=== PATIENT | male | born 1945 | race Caucasian/White ===

== ENCOUNTER 2024-08-04 15:34 | Inpatient (IN) | payer MEDICARE ==
[~2024-08-04] VITALS: Ht 167.6 cm; Wt 61.2 kg
[2024-08-04] MEDS: GABAPENTIN 300 MG CAPSULE PO SCH (10:00)
[2024-08-04] MEDS ORDERED: Magnesium 1GM/D5W 100ML PREMIX 100 ML IV ONE (15:53)
[2024-08-04] MEDS ORDERED: DILTIAZEM HCL 50 MG IV ONE (15:54)
[2024-08-04 16:02] LABS: ABG BASE EXCESS -1.3 mmol/L (-2.0-3.0); ABG PCO2 44.2 mmHg (35.0-48.0); ABG PH 7.359 (7.350-7.450); ABG PO2 200.2 mmHg (83.0-108.0); ABG TOTAL HEMOGLOBIN 15.2 G/dL (13.5-17.5); COHb 0.3 % (0.5-1.5); MetHb 0.3 % (0.0-1.5); O2Hb 98.4 % (94.0-97.0); SITE, ABG RIGHT RADIAL
[2024-08-04] MEDS: DILTIAZEM HCL 50 MG IV IV ONE (16:12)
[2024-08-04] MEDS: Magnesium 1GM/D5W 100ML PREMIX 200 ML IV ONE (16:13)
[2024-08-04] MEDS ORDERED: methylPREDNISolone SOD SUCC 125 MG/2ML VIAL ONE (16:14)
[2024-08-04] MEDS: methylPREDNISolone SOD SUCC 125 MG/2ML VIAL IV ONE (16:15)
[2024-08-04] MEDS ORDERED: LORAZEPAM INJ 2 MG/ML VIAL ONE ×2 (16:15→20:48)
[2024-08-04] MEDS: LORAZEPAM INJ 2 MG/ML VIAL IV ONE ×4 (16:15→20:30)
[2024-08-04] MEDS ORDERED: IPRATROPIUM NEB FS 0.5 MG/2.5 ML AMPUL.NEB ONE (16:18)
[2024-08-04] MEDS ORDERED: ALBUTEROL FS 2.5 MG/3 ML VIAL.NEB ONE ×2 (16:18→19:44)
[2024-08-04 16:20] VITALS: O2SAT 97
[2024-08-04] MEDS: IPRATROPIUM NEB FS 0.5 MG/2.5 ML AMPUL.NEB NEB ONE (16:20)
[2024-08-04] MEDS: ALBUTEROL FS 2.5 MG/3 ML VIAL.NEB CONTNEB ONE (16:20)
[2024-08-04 16:33] VITALS: O2SAT 98
[2024-08-04 16:39] LABS: BASOPHILS # (AUTO) 0.1 K/uL (0.0-0.2); BASOPHILS % (AUTO) 1.2 % (0.0-2.0); EOSINOPHILS # (AUTO) 0.1 K/uL (0.0-0.7); EOSINOPHILS % (AUTO) 0.5 % (0.0-6.0); HEMATOCRIT 44 % (39-51); HEMOGLOBIN 13.7 g/dL (13.5-17.5); LYMPHOCYTES # (AUTO) 0.3 K/uL (0.8-4.8); LYMPHOCYTES % (AUTO) 2.6 % (20.0-44.0); MEAN CORPUSCULAR HEMOGLOBIN 25 PG (26.0-33.0); MEAN CORPUSCULAR HGB CONC 32 g/dl (31.0-36.0); MEAN CORPUSCULAR VOLUME 80 fL (80-96); MONOCYTES # (AUTO) 0.3 K/uL (0.1-1.30); MONOCYTES % (AUTO) 2.7 % (2.0-12.0); NEUTROPHILS # (AUTO) 11.8 K/uL (1.8-8.9); PLATELET COUNT (AUTO) 373 K/uL (150-450); RED BLOOD CELL COUNT(AUTO) 5.43 MIL/uL (4.5-6.0); RED CELL DISTRIBUTION WIDTH 16.7 % (11.5-15.0); WHITE BLOOD COUNT (AUTO) 12.7 K/uL (4.3-11.0)
[2024-08-04 16:50] LABS: CALCIUM, SERUM 9.5 mg/dL (8.5-10.1); CARBON DIOXIDE 26 mmol/L (21-32); CHLORIDE 103 mmol/L (98-107); CREATININE 1.3 mg/dL (0.6-1.3); GLUCOSE 222 mg/dL (74-106); POTASSIUM 4.1 mmol/L (3.5-5.1); SODIUM SERUM 139 mmol/L (136-145); UREA NITROGEN, BLOOD 37 mg/dL (7-18)
[2024-08-04 17:01] LABS: LACTIC ACID 4.7 mmol/L (0.4-2.0)
[2024-08-04 17:04] LABS: ALANINE AMINOTRANSFERASE 155 U/L (12-78); ALBUMIN 3.5 g/dL (3.4-5.0); ALKALINE PHOSPHATASE 118 U/L (46-116); ASPARTATE AMINOTRANSFERASE 154 U/L (15-37); BILIRUBIN,DIRECT 0.3 mg/dL (0.0-0.2); BILIRUBIN,TOTAL 0.6 mg/dL (0.2-1.0); TOTAL PROTEIN, SERUM 6.6 g/dL (6.4-8.2)
[2024-08-04] MEDS ORDERED: METO25TA4 PO (17:28)
[2024-08-04] MEDS ORDERED: CLOP75TA15 PO (17:28)
[2024-08-04] MEDS ORDERED: AZIT250T13 PO (17:28)
[2024-08-04] MEDS ORDERED: DUTA0.5C37 PO (17:28)
[2024-08-04] MEDS ORDERED: FLUT1BLS IH (17:28)
[2024-08-04] MEDS ORDERED: GABA300C PO (17:28)
[2024-08-04] MEDS ORDERED: IPRA12.9 IH (17:28)
[2024-08-04] MEDS ORDERED: PRED20TA PO (17:28)
[2024-08-04] MEDS ORDERED: TRAZ-252 PO (17:28)
[2024-08-04] MEDS ORDERED: TUDORZA IH (17:28)
[2024-08-04] MEDS ORDERED: SACU1TAB PO (17:28)
[2024-08-04] MEDS ORDERED: ENOXAPARIN SODIUM 60 MG/0.6 ML DISP.SYRIN SQ ONE (17:36)
[2024-08-04] MEDS ORDERED: IOHEXOL-350 100 ML VIAL IV ONE (17:46)
[2024-08-04] MEDS ORDERED: IV NS 0.9% 250 ML IV ONE (17:47)
[2024-08-04] MEDS ORDERED: CT SWABBABLE VALVE TRANS SET 1 EA INFUS.SET MC ONE (17:47)
[2024-08-04] MEDS: ENOXAPARIN SODIUM 60 MG/0.6 ML DISP.SYRIN SQ ONE (17:51)
[2024-08-04] MEDS ORDERED: ACETAMINOPHEN 325 MG TABLET PO PRN (19:00)
[2024-08-04] MEDS ORDERED: ONDANSETRON HCL/PF 4 MG/2 ML VIAL IVP PRN (19:00)
[2024-08-04] MEDS ORDERED: Z GUARD REMEDY 4 OZ OINT TP PRN (19:00)
[2024-08-04] MEDS ORDERED: MAGNESIUM HYDROXIDE 30 ML UDC PO PRN (19:00)
[2024-08-04] MEDS ORDERED: FUROSEMIDE 40 MG/4 ML VIAL ONE (19:22)
[2024-08-04] MEDS: FUROSEMIDE 40 MG/4 ML VIAL IV ONE (19:32)
[2024-08-04 19:41] VITALS: O2SAT 100
[2024-08-04] MEDS: IPRATROPIUM NEB FS 0.5 MG/2.5 ML AMPUL.NEB NEB STA (19:41)
[2024-08-04] MEDS: ALBUTEROL FS 2.5 MG/3 ML VIAL.NEB NEB STA (19:41)
[2024-08-04 19:56] VITALS: O2SAT 100
[2024-08-04] MEDS: METOPROLOL TARTRATE INJ 5 MG/5 ML AMPUL IV ONE (20:30)
[2024-08-04] MEDS ORDERED: METOPROLOL TARTRATE INJ 5 MG/5 ML AMPUL ONE (20:48)
[2024-08-04] MEDS: TRAZODONE 50 MG TABLET PO SCH (22:00)
[2024-08-04] MEDS: ZOSYN IVPB 3.375 G in IV D5W 50ml IV SCH (22:16)
[2024-08-04 23:57] VITALS: BP 128/66; TEMP 97.5; O2SAT 100
[2024-08-05] VITALS (14 sets, daily range): BP systolic 94–137; BP diastolic 56–79; TEMP 96.8–98.1; O2SAT 97–100
[2024-08-05] MEDS: ALBUTEROL FS 2.5 MG/3 ML VIAL.NEB NEB SCH ×2 (02:12→13:54)
[2024-08-05] MEDS: IPRATROPIUM NEB FS 0.5 MG/2.5 ML AMPUL.NEB NEB SCH (02:12)
[2024-08-05] MEDS: LORAZEPAM INJ 2 MG/ML VIAL IV ONE (03:43)
[2024-08-05] MEDS: methylPREDNISolone SOD SUCC 40 MG/ML VIAL IV ONE (04:19)
[2024-08-05] MEDS: ENOXAPARIN SODIUM 60 MG/0.6 ML DISP.SYRIN SQ SCH (05:54)
[2024-08-05 06:38] LABS: HEMATOCRIT 41 % (39-51); HEMOGLOBIN 13.2 g/dL (13.5-17.5); LYMPHOCYTES # (AUTO) 0.2 K/uL (0.8-4.8); MEAN CORPUSCULAR HEMOGLOBIN 26 PG (26.0-33.0); MEAN CORPUSCULAR HGB CONC 32 g/dl (31.0-36.0); MEAN CORPUSCULAR VOLUME 80 fL (80-96); MONOCYTES # (AUTO) 0.4 K/uL (0.1-1.30); MONOCYTES % (AUTO) 4.4 % (2.0-12.0); NEUTROPHILS # (AUTO) 8.6 K/uL (1.8-8.9); NEUTROPHILS % (AUTO) 93.6 % (43.0-81.0); PLATELET COUNT (AUTO) 306 K/uL (150-450); RED BLOOD CELL COUNT(AUTO) 5.16 MIL/uL (4.5-6.0); RED CELL DISTRIBUTION WIDTH 16.6 % (11.5-15.0); WHITE BLOOD COUNT (AUTO) 9.2 K/uL (4.3-11.0)
[2024-08-05 06:40] LABS: ABG BASE EXCESS 1.3 mmol/L (-2.0-3.0); ABG OXYGEN SATURATION 97.7 % (94.0-98.0); ABG PCO2 35.6 mmHg (35.0-48.0); ABG PO2 100.6 mmHg (83.0-108.0); ABG TOTAL HEMOGLOBIN 14.2 G/dL (13.5-17.5); COHb 0.5 % (0.5-1.5); MetHb 0.2 % (0.0-1.5); SITE, ABG RIGHT RADIAL
[2024-08-05 07:00] LABS: ALBUMIN 2.9 g/dL (3.4-5.0); CALCIUM, SERUM 8.7 mg/dL (8.5-10.1); CREATININE 1.4 mg/dL (0.6-1.3); MAGNESIUM 2.3 mg/dL (1.8-2.4); PHOSPHORUS 4.3 mg/dL (2.5-4.9); POTASSIUM 3.9 mmol/L (3.5-5.1)
[2024-08-05] MEDS: BUDESONIDE RESPULE INH 0.5 MG/2 ML AMPUL.NEB NEB SCH (07:05)
[2024-08-05 07:38] LABS: LACTIC ACID 6.2 mmol/L (0.4-2.0)
[2024-08-05] MEDS: ASPIRIN 81 MG TAB.CHEW PO SCH (08:50)
[2024-08-05] MEDS: PANTOPRAZOLE 40 MG VIAL IV SCH (08:50)
[2024-08-05] MEDS: DUTASTERIDE (0.5 MG) 0.5 MG CAPSULE PO SCH (08:50)
[2024-08-05] MEDS: ATORVASTATIN 10 MG TABLET PO SCH (08:50)
[2024-08-05] MEDS: METOPROLOL SUCCINATE 25 MG TAB.SR.24H PO SCH (08:57)
[2024-08-05] MEDS ORDERED: TUDORZA IH SCH (09:00)
[2024-08-05] MEDS: SACUBITRIL/VALSARTAN 24/26MG TABLET PO SCH (09:00)
[2024-08-05] MEDS ORDERED: CLOPIDOGREL BISULFATE 75 MG TABLET PO SCH (09:00)
[2024-08-05] MEDS: LEVOFLOXACIN (250MG) 250 MG TABLET PO ONE (11:51)
[2024-08-05] MEDS: ALPRAZOLAM 0.25 MG TABLET PO PRN (11:51)
[2024-08-05] MEDS: methylPREDNISolone SOD SUCC 125 MG/2ML VIAL IV SCH ×2 (11:53→12:30)
[2024-08-05] MEDS: MAG HYDROX/AL HYDROX/SIMETH 30 ML UDC PO PRN (17:08)
[2024-08-05] MEDS: VANCOMYCIN HCL 1.25 GM in IV D5W 250 ML IV ONE (20:18)
[2024-08-06] VITALS (15 sets, daily range): BP systolic 108–128; BP diastolic 50–65; TEMP 97.5–98.4; O2SAT 96–100
[2024-08-06] MEDS: ZOLPIDEM TARTRATE 10 MG TABLET PO PRN (00:04)
[2024-08-06 08:25] LABS: HEMATOCRIT 37 % (39-51); HEMOGLOBIN 11.9 g/dL (13.5-17.5); LYMPHOCYTES # (AUTO) 0.1 K/uL (0.8-4.8); LYMPHOCYTES % (AUTO) 1.4 % (20.0-44.0); MEAN CORPUSCULAR HEMOGLOBIN 25 PG (26.0-33.0); MEAN CORPUSCULAR HGB CONC 33 g/dl (31.0-36.0); MEAN CORPUSCULAR VOLUME 78 fL (80-96); MONOCYTES # (AUTO) 0.4 K/uL (0.1-1.30); NEUTROPHILS # (AUTO) 8.2 K/uL (1.8-8.9); NEUTROPHILS % (AUTO) 93.6 % (43.0-81.0); PLATELET COUNT (AUTO) 273 K/uL (150-450); RED CELL DISTRIBUTION WIDTH 16.2 % (11.5-15.0); WHITE BLOOD COUNT (AUTO) 8.8 K/uL (4.3-11.0)
[2024-08-06 08:42] LABS: ALANINE AMINOTRANSFERASE 119 U/L (12-78); ALBUMIN 2.6 g/dL (3.4-5.0); ALKALINE PHOSPHATASE 61 U/L (46-116); ASPARTATE AMINOTRANSFERASE 46 U/L (15-37); BILIRUBIN,TOTAL 0.6 mg/dL (0.2-1.0); CALCIUM, SERUM 8.6 mg/dL (8.5-10.1); CARBON DIOXIDE 31 mmol/L (21-32); CHLORIDE 104 mmol/L (98-107); GLUCOSE 112 mg/dL (74-106); MAGNESIUM 2.4 mg/dL (1.8-2.4); NT-PRO BNP 2324 pg/mL (0-125); PHOSPHORUS 2.4 mg/dL (2.5-4.9); SODIUM SERUM 139 mmol/L (136-145); UREA NITROGEN, BLOOD 30 mg/dL (7-18)
[2024-08-06] MEDS: PANTOPRAZOLE 40 MG TABLET.DR PO SCH (09:07)
[2024-08-06] MEDS: VANCOMYCIN 500 MG in IV D5W 100ml IV SCH (09:08)
[2024-08-06] MEDS: ENOXAPARIN SODIUM 40 MG/0.4 ML DISP.SYRIN SQ SCH (09:30)
[2024-08-06] MEDS: LEVOFLOXACIN (250MG) 250 MG TABLET PO SCH (11:00)
[2024-08-06] MEDS ORDERED: ASPI-1169 PO (11:52)
[2024-08-06] MEDS ORDERED: LEVO250T59 PO (11:52)
[2024-08-06] MEDS ORDERED: MAGN400O6 PO (11:52)
[2024-08-06] MEDS ORDERED: ALPR0.255 PO (11:52)
[2024-08-06] MEDS ORDERED: PIPE3.379 IV (11:52)
[2024-08-06] MEDS ORDERED: Zolpidem Tartrate PO (11:52)
[2024-08-06] MEDS ORDERED: MAG30ORA PO (11:52)
[2024-08-06] MEDS ORDERED: ACET1OOV6 NEB (11:52)
[2024-08-06] MEDS ORDERED: IPRA0.2S9 NEB (11:52)
[2024-08-06] MEDS ORDERED: ACET325T53 PO (11:52)
[2024-08-06] MEDS ORDERED: ALBUT2 NEB (11:52)
[2024-08-06] MEDS ORDERED: ATOR10TA PO (11:52)
[2024-08-06] MEDS ORDERED: METH125V14 IV (11:52)
[2024-08-06] MEDS ORDERED: PANT40TA49 PO (11:52)
[2024-08-06 13:12] LABS: BILIRUBIN,DIRECT 0.2 mg/dL (0.0-0.2)
[2024-08-06 13:34] LABS: LACTIC ACID REFLEX 3.2 mmol/L (0.4-1.9)
[2024-08-06] MEDS: ACETYLCYSTEINE 10% SOLN 400 MG/4 ML VIAL NEB SCH (14:11)
[2024-08-06] MEDS: CALCIUM CARBONATE 500 MG TAB.CHEW PO SCH (14:20)
[2024-08-06] MEDS ORDERED: CALCIUM CARBONATE 500 MG TAB.CHEW PO PRN (14:30)
[2024-08-06] MEDS ORDERED: ACETYLCYSTEINE 10% SOLN 400 MG/4 ML VIAL NEB SCH (15:30)
[2024-08-06] MEDS: K PHOS NEUTRAL 250 MG TABLET PO ONE (15:51)
[2024-08-06] MEDS: VANCOMYCIN 750 MG in IV D5W 250 ML IV SCH (20:34)
[2024-08-07] VITALS (16 sets, daily range): BP systolic 105–110; BP diastolic 47–68; TEMP 97.8–98.6; O2SAT 96–100
[2024-08-07 08:52] LABS: BASOPHILS % (AUTO) 0.1 % (0.0-2.0); EOSINOPHILS % (AUTO) 0.2 % (0.0-6.0); HEMATOCRIT 42 % (39-51); HEMOGLOBIN 13.1 g/dL (13.5-17.5); LYMPHOCYTES # (AUTO) 0.3 K/uL (0.8-4.8); LYMPHOCYTES % (AUTO) 2.1 % (20.0-44.0); MEAN CORPUSCULAR HEMOGLOBIN 25 PG (26.0-33.0); MEAN CORPUSCULAR HGB CONC 31 g/dl (31.0-36.0); MEAN CORPUSCULAR VOLUME 81 fL (80-96); MONOCYTES # (AUTO) 1.3 K/uL (0.1-1.30); MONOCYTES % (AUTO) 10.2 % (2.0-12.0); NEUTROPHILS # (AUTO) 11.5 K/uL (1.8-8.9); NEUTROPHILS % (AUTO) 87.4 % (43.0-81.0); PLATELET COUNT (AUTO) 251 K/uL (150-450); RED BLOOD CELL COUNT(AUTO) 5.25 MIL/uL (4.5-6.0); RED CELL DISTRIBUTION WIDTH 16.7 % (11.5-15.0); WHITE BLOOD COUNT (AUTO) 13.1 K/uL (4.3-11.0)
[2024-08-07 09:12] LABS: CALCIUM, SERUM 9.1 mg/dL (8.5-10.1); PHOSPHORUS 2.5 mg/dL (2.5-4.9)
[2024-08-07 09:22] LABS: ALBUMIN 2.6 g/dL (3.4-5.0); NT-PRO BNP 1451 pg/mL (0-125)
[2024-08-07 09:47] LABS: LACTIC ACID 2.1 mmol/L (0.4-2.0)
[2024-08-07 15:13] LABS: HIV-1 p24 ANTIGEN NON REACTIVE (NONREACTIVE); HIV-1/2 ANTIBODY NON REACTIVE (NONREACTIVE)
[2024-08-07] MEDS: VANCOMYCIN 1 GM in IV D5W 250ml IV SCH (21:53)
[2024-08-07] MEDS: methylPREDNISolone SOD SUCC 125 MG/2ML VIAL IV SCH (23:14)
[2024-08-07] MEDS ORDERED: diphenhydrAMINE HCL ELIX 25 MG/10 ML UDC ONE (23:52)
[2024-08-07] MEDS: DIPHENHYDRAMINE HCL 12.5 MG/5 ML UDC PO PRN (23:55)
[2024-08-08] VITALS (15 sets, daily range): BP systolic 101–105; BP diastolic 47–61; TEMP 97.3–97.9; O2SAT 95–100
[2024-08-08 08:12] LABS: CALCIUM, SERUM 8.5 mg/dL (8.5-10.1); CREATININE 1.1 mg/dL (0.6-1.3); POTASSIUM 4.5 mmol/L (3.5-5.1)
[2024-08-08] MEDS: AZITHROMYCIN 250 MG TABLET PO SCH (08:58)
[2024-08-08 09:02] LABS: CHOLESTEROL 137 mg/dL (<200); HDL CHOLESTEROL 61 mg/dL (40-60); LDL 69 mg/dL (0-99); TRIGLYCERIDES 52 mg/dL (30-150)
[2024-08-09] MEDS ORDERED: methylPREDNISolone SOD SUCC 125 MG/2ML VIAL IV SCH (09:00)
== END 2024-08-08 20:41 | disposition short-term general hospital (02) | DRG 189 ==
LOC: ER 15:36 → TELE-TD 21:00 → TELE1 08-06 09:45
PROVIDERS: ADMIT Nurse Practitioner Family; ATTEND Nurse Practitioner Family
DX: J96.01 Acute respiratory failure with hypoxia (principal); I21.A1 Myocardial infarction type 2; J18.9 Pneumonia, unspecified organism; I50.23 Acute on chronic systolic (congestive) heart failure; J44.1 Chronic obstructive pulmonary disease with (acute) exacerbation; I48.20 Chronic atrial fibrillation, unspecified; E87.20 Acidosis, unspecified; J98.11 Atelectasis; N17.9 Acute kidney failure, unspecified; J44.0 Chronic obstructive pulmonary disease with (acute) lower respiratory infection; Z90.2 Acquired absence of lung [part of]; J20.9 Acute bronchitis, unspecified; J43.9 Emphysema, unspecified; I48.0 Paroxysmal atrial fibrillation; Z95.818 Presence of other cardiac implants and grafts; Z86.16 Personal history of COVID-19; Z87.891 Personal history of nicotine dependence; N40.0 Benign prostatic hyperplasia without lower urinary tract symptoms; I25.10 Atherosclerotic heart disease of native coronary artery without angina pectoris; R74.01 Elevation of levels of liver transaminase levels; R73.9 Hyperglycemia, unspecified; G62.9 Polyneuropathy, unspecified; I44.7 Left bundle-branch block, unspecified; I11.0 Hypertensive heart disease with heart failure
CPT/HCPCS: 36415; 71045-TC; 80048-TC; 80053-TC; 80061-TC; 80076-TC; 80202-TC; 82040-TC; 82248-TC; 82803-TC; 83605-TC; 83735-TC; 83880; 84100-TC; 84484-TC; 85025-TC; 85378-TC; 86803; 87040-TC; 87806; 93307-TC; 94760-TC; 94761-TC; 94799-TC; A4223; G0378; J1650; J1940; J2060; J2470; J2543; J2919; J3370; J3371; J3475; J3490; J7050; J7060; Q0163; Q9967